=== PATIENT | female | born 1935 | race Caucasian/White ===

== ENCOUNTER → 2016-11-24 | Outpatient (CLI) | payer MEDICARE, OTHER ==
--- NOTE | 2016-11-24 10:22 | REPMRS ---
Patient History The patient states she had a clinical breast exam in November 2016. Patient is postmenopausal. Family history of unknown cancer in daughter at age 48. Patient states her prior exams were don at [facility] Bilateral: November 24, 2016 - Exam #: [id number] Bilateral CC and MLO view(s) were taken. Technologist: Juanita Gil, Technologist FINDINGS: There are scattered fibroglandular densities. There has been no change in the appearance of the mammogram from the prior studies. There is no evidence of skin thickening or other significant skin or or contour changes. No abnormal subareolar density is seen. There is a mild amount of scattered fibroglandular density which is fairly symmetric. There is no interval development of dominant mass, architectural distortion, or clustered microcalcification suggestive of malignancy. No significant changes when compared with prior studies. ASSESSMENT: BI-RADS/ACR category 1 mammogram. Negative. Recommendation Routine screening mammogram in 1 year (for women over age 40). This mammogram was interpreted with the aid of an FDA-approved computer-aided dectection system. Electronically Signed By: Corby Vázquez MD 11/24/16 0429
== END ==
LOC: M RAD 09:02
PROVIDERS: ATTEND Internal Medicine
DX: D48.5 Neoplasm of uncertain behavior of skin (principal)